=== PATIENT | male | born 1980 | race Caucasian/White ===

== ENCOUNTER → 2017-02-27 | Day surgery (SDC) | payer OTHER ==
[2017-01-30 14:34] VITALS: Ht 190.5 cm; Wt 109.1 kg
[2017-02-10 13:21] LABS: BASO % 0.4 %; BASO ABS # 0.03 K/uL (0-0.2); EOS % 3.5 %; EOS ABS # 0.24 K/uL (0-0.5); HEMATOCRIT 47.7 % (42-52); HEMOGLOBIN 16.9 g/dL (14.0-18.0); IG# 0.03 K/uL (0.00-0.02); LYMPH % 18.8 %; LYMPH ABS # 1.27 K/uL (1.2-3.4); MEAN CELL VOLUME 91.9 fL (80-100); MEAN CORPUSCULAR HEMOGLOBIN 32.6 pg (25-34); MEAN CORPUSCULAR HGB CONC 35.4 g/dl (32-36); MEAN PLATELET VOLUME 10.6 fL (7.4-10.4); MONO % 6.6 %; MONO ABS # 0.45 K/uL (0.11-0.59); NEUT % 70.3 %; NEUT ABS # 4.75 K/uL (1.4-6.5); PLATELET COUNT 168 K/uL (130-400); RED CELL DISTRIBUTION WIDTH CV 12.5 % (11.5-14.5); WHITE BLOOD COUNT 6.77 K/uL (4.8-10.8)
[2017-02-10 13:29] LABS: PTT PATIENT 32.5 SECONDS (21.0-31.0)
[2017-02-10 13:46] LABS: POTASSIUM 3.8 mmol/L (3.5-5.1)
[~2017-02-27] VITALS: Ht 190.5 cm; Wt 109.1 kg
[~2017-02-27] MED LIST: ATROPINE SULFATE 0.1 MG/ML 5ML SYR IV PRN; BACITRACIN/POLYMYXIN B OINT 90 APPLN/28.4 GM TUBE EXT ONE; CETI10TA10 PO; CHOL20009 PO; CLINDAMYCIN PHOS 150 MG/ML 2 ML VIAL IV SCH; DEXAMETHASONE SOD INJ 4 MG/ML VIAL ONE; EpINEphrine INJ 1MG/ML AMP 1 MG/ML AMP ONE; FENTANYL CITRATE INJ 50 MCG/1 ML 2 ML VIAL IV PRN; FENTANYL CITRATE INJ 50 MCG/1 ML 2 ML VIAL ONE; GLYCOPYRROLATE INJ 0.2 MG/ML VIAL ONE; HYDROCODONE/ACETAMIN 5/325MG TAB PO PRN; LABETALOL HCL IV 5 MG/ML 20ML IV PRN; LACTATED RINGER'S 1000ML 1,000 ML IV SCH; LEVO137C2 PO; LIDOCAINE 4% MPF SOAK 5 ML = 1 DOSE TOP ONE; LIDOCAINE HCL 2% 2 ML VIAL (20MG/ML) ONE; LIDOCAINE/EPINEPHRINE 1% INJ 50 ML VIAL ONE; LISI10TA PO; MIDAZOLAM HCL 1 MG/ML 2ML VIAL ONE; MONT1TAB3 PO; NEOSTIGMINE METHYLSULFATE 5 MG/5 ML SYR ONE; ONDANSETRON INJ 2 MG/ML 2 ML VIAL IV PRN; ONDANSETRON INJ 2 MG/ML 2 ML VIAL ONE; OXYMETAZOLINE HCL 0.05% NA SPR 15 ML BTL PRN; OXYMETAZOLINE HCL 0.05% NA SPR 15 ML BTL SCH; PROPOFOL IV EMULSION 10 MG/ML 20 ML VIAL IV ONE
--- NOTE | 2017-02-27 09:51 | History and Physical: Surg Cnt ---
History & Physical Date Feb 27, 2017. Chief Complaint CHRONIC SINUSITIS, LEFT SEPTAL DEVIATION, RIGHT ZACHARY BULLOSA, BILATERAL INFERIOR TURBINATE HYPERTROPHY History of Present Illness The patient is a 36 year old male with complaints of CHRONIC SINUSITIS, LEFT SEPTAL DEVIATION, RIGHT ZACHARY BULLOSA, BILATERAL INFERIOR TURBINATE HYPERTROPHY WITH SYMPTOMS DESPITE MAXIMAL MEDICAL THERAPY. Past Medical/Surgical History PMH: ABOVE, ALLERGIC RHINITIS, DYSLIPIDEMIA, NEPHROLITHIASIS, +JAYCE PSH: S/P WISDOM TEETH EXTRACTION Allergies Coded Allergies: Penicillins (Unverified Allergy, Mild, NUMBNESS, HIVES, 01/30/17) Home Medications Scheduled Cetirizine Hcl (Zyrtec), 10 MG PO QAM Cholecalciferol (Vitamin D), 2 TAB PO QAM Levothyroxine Sodium (Tirosint), 1 CAP PO QAM Lisinopril (Prinivil), 10 MG PO QAM Montelukast Sodium (Singulair), 10 MG PO QAM Physical Examination Skin: warm/dry, no rash Eyes: normal inspection, EOMI, sclerae normal ENT: + pertinent finding (LEFT SEPTAL DEVIATION, RIGHT MIDDLE TURBINATE HYPERTROPHY, BILATERAL INFERIOR TURBINATE HYPERTROPHY) Head: normocephalic, atraumatic Neck: supple, no adenopathy, trachea midline Respiratory/Chest: lungs clear, normal breath sounds, no respiratory distress Cardiovascular: regular rate, rhythm, no edema, no murmur Neurologic/Psych: no motor/sensory deficits, alert, normal reflexes, oriented x 3 Diagnosis CHRONIC SINUSITIS, LEFT SEPTAL DEVIATION, RIGHT ZACHARY BULLOSA, BILATERAL INFERIOR TURBINATE HYPERTROPHY Plan of Treatment IMAGE-GUIDED LEFT MAXILLARY ANTROSTOMY, RIGHT ENDOSCOPIC ZACHARY BULLOSA RESECTION, SEPTOPLASTY, BILATERAL INFERIOR TURBINATE REDUCTION
--- NOTE | 2017-02-27 10:58 | [facility] Operative Report ---
Operative Report Operative Date Feb 27, 2017. Pre-Operative Diagnosis Chronic sinusitis, left septal deviation, right zachary bullosa, bilateral inferior turbinate hypertrophy Post-Operative Diagnosis Same as preop Procedure(s) Performed Bilateral Endoscopic Sinus Surgery Including Left Maxillary Antrostomy, Septoplasty, Right Endoscopic Zachary Bullosa Resection, Bilateal Inferior Turbinate Reduction Surgeon Dr. Villatoro Public Address Announcer Surgeon(s) none Estimated Blood Loss 10ml Findings 1. SEVERE LEFT SEPTAL DEVIATION 2. RIGHT > LEFT INFERIOR TURBINATE HYPERTROPHY 3. LARGE RIGHT ZACHARY BULLOSA 4. HYPOPLASTIC LEFT MAXILLARY SINUS WITH THICK MUCUS FILLING THE ENTIRE SINUS Specimens none per surgeon I attest to the content of the Intraoperative Record and any orders documented therein. Any exceptions are noted below.
--- NOTE | 2017-02-27 11:00 | Discharge Instructions ---
Discharge Instructions Date of Service Feb 27, 2017. Admission Reason for Admission: Chronic Sinusitis, Nasal Septal Deviation, Hypertr Discharge Discharge Diagnosis / Problem: SAME Discharge Goals Goal(s): Therapeutic intervention Activity Recommendations Activity Limitations: as noted below 1. LIGHT ACTIVITY AND NO NOSE BLOWING FOR 2 WEEKS 2. NO DRIVING WHILE ON NORCO . Current Hospital Diet Patient's current hospital diet: Discharge Diet Recommended Diet: Regular Diet Procedures Procedures Performed: Bilateral Endoscopic Sinus Surgery Including Left Maxillary Antrostomy, Septoplasty, Right Endoscopic Nadine Bullosa Resection, Bilateal Inferior Turbinate Reduction Pending Studies Studies pending at discharge: no Medical Emergencies . Who to Call and When: Medical Emergencies: If at any time you feel your situation is an emergency, please call 911 immediately. . Non-Emergent Contact Non-Emergency issues call your: Surgeon . . "Provider Documentation" section prepared by Migue Villatoro. . VTE Core Measure Inpt VTE Proph given/why not?: SCD's
[2017-02-27 12:09] VITALS: BP 132/88; PULSE 72; TEMP 36.4; O2SAT 99
--- NOTE | 2017-02-27 12:15 | Anesthesia Progress Nt - [facility] ---
Anesthesia Post Op Note Date & Time Feb 27, 2017 at 12:15 Vital Signs Pain Intensity: 4 Vital Signs Past 12 Hours Date Time Temp Pulse Resp B/P (MAP) Pulse Ox O2 Delivery O2 Flow Rate FiO2 02/27/17 12:09 36.4 72 16 132/88 (103) 99 Room Air 02/27/17 11:48 75 16 122/87 (99) 96 Room Air 02/27/17 11:41 140/88 02/27/17 11:41 140/88 02/27/17 11:38 76 10 95 02/27/17 11:38 76 10 02/27/17 11:38 76 10 95 02/27/17 11:38 76 10 02/27/17 11:36 110/93 02/27/17 11:36 110/93 02/27/17 11:35 36.6 74 16 110/93 95 Room Air 02/27/17 11:33 75 12 95 02/27/17 11:33 75 12 02/27/17 11:33 75 12 02/27/17 11:33 75 12 95 02/27/17 11:31 134/89 02/27/17 11:31 134/89 02/27/17 11:28 74 13 97 02/27/17 11:28 74 13 97 02/27/17 11:28 74 13 02/27/17 11:28 74 13 02/27/17 11:26 130/85 02/27/17 11:26 130/85 02/27/17 11:23 81 10 02/27/17 11:23 81 10 94 02/27/17 11:23 81 10 02/27/17 11:23 81 10 94 02/27/17 11:21 131/90 02/27/17 11:21 131/90 02/27/17 11:18 81 16 97 02/27/17 11:18 81 16 97 02/27/17 11:18 83 16 02/27/17 11:18 83 16 02/27/17 11:16 134/85 02/27/17 11:16 134/85 02/27/17 11:13 81 15 96 02/27/17 11:13 81 15 96 02/27/17 11:13 81 15 02/27/17 11:13 81 15 02/27/17 11:11 135/85 02/27/17 11:11 135/85 02/27/17 11:08 92 16 96 02/27/17 11:08 92 16 96 02/27/17 11:08 95 16 02/27/17 11:08 95 16 02/27/17 11:06 155/95 02/27/17 11:06 155/95 02/27/17 11:04 36.5 96 16 146/95 98 Humidified Oxygen 8 Mask 02/27/17 11:04 146/95 02/27/17 11:04 146/95 02/27/17 08:21 36.3 86 16 135/93 (107) 98 Room Air Notes Mental Status: alert / awake / arousable, participated in evaluation Pt Amnestic to Procedure: Yes Nausea / Vomiting: adequately controlled Pain: adequately controlled Airway Patency, RR, SpO2: stable & adequate BP & HR: stable & adequate Hydration State: stable & adequate Anesthetic Complications: no major complications apparent
--- NOTE | 2017-02-27 12:53 | OPERATIVE REPORT ---
DATE OF OPERATION: 02/27/2017 PREOPERATIVE DIAGNOSES: 1. Chronic sinusitis. 2. Right katie bullosa. 3. Severe left septal deviation. 4. Right greater than left inferior turbinate hypertrophy. POSTOPERATIVE DIAGNOSES: 1. Chronic sinusitis. 2. Right katie bullosa. 3. Severe left septal deviation. 4. Right greater than left inferior turbinate hypertrophy. PROCEDURES: Medtronic fusion image guided bilateral endoscopic sinus surgery consisting of: 1. Left maxillary antrostomy. 2. Right endoscopic katie bullosa resection. 3. Septoplasty. 4. Bilateral inferior turbinate outfracture and turbinoplasty. SURGEON: Dr. Migue Villatoro. ANESTHESIA: General endotracheal. ESTIMATED BLOOD LOSS: 10 mL. FINDINGS: 1. Severe left septal deviation with near 100% obstruction of the left nasal cavity from the deviation. 2. Right greater than left inferior turbinate hypertrophy. 3. Large right katie bullosa. 4. Hypoplastic left maxillary sinus with associated inspissated mucus. SPECIMENS: None. COMPLICATIONS: None. INDICATIONS FOR THE PROCEDURE: The patient is a 36-year-old male with a history of chronic rhinosinusitis and nasal airway obstruction, which had been refractory to maximal medical therapy including antibiotics, steroids, and allergy treatment. He complains of left greater than right nasal airway obstruction and also has some left maxillary and ear pressure, which has not responded to medications. He presents for the above-mentioned procedure on an outpatient elective basis. DESCRIPTION OF PROCEDURE: After informed consent had been obtained from the patient, the patient was wheeled to the operating room and placed on the operating table in the supine position. Monitors were placed. After induction of general endotracheal anesthesia, the patient was prepped in the usual fashion for image guided sinus surgery. The [employer] fusion headset was placed over the forehead and was registered, calibrated, and verified and used for the left maxillary antrostomy portion of the case given the patient's anatomy of the hypoplastic left maxillary sinus. The patient's nasal cavity was inspected and the patient has severe left septal deviation with near 100% obstruction on that side. Septoplasty had to be performed prior to the left maxillary antrostomy. The nasal septum was injected with 1% lidocaine with 1:100,000 epinephrine. Lidocaine and epinephrine pledgets was then placed in the bilateral nasal cavities and pressure applied. After allowing adequate time for vasoconstriction and anesthesia, the pledgets were removed and a #15 scalpel was used to make a left para-[place] incision, through which the left-sided mucoperichondrial and mucoperiosteal flap was elevated. A #15 scalpel was then used to incise the quadrangular cartilage with care to preserve a 1.5-cm dorsal and caudal strut and the right-sided mucoperichondrial and mucoperiosteal flap was elevated through this cartilaginous incision. A Nikolay swivel knife was then used to remove the deviated portion of the quadrangular cartilage. Gunner forceps was used to remove septal bone more posteriorly, which was impinging on the airway on the left hand side anterosuperiorly and posteriorly. After this bone had been removed, the septum was found to be in midline. The septal cavity was suctioned. The left para-Nakul incision was closed with several simple interrupted 4-0 chromic sutures. A 4-0 plain gut suture on a Luis needle was then used to perform a quilting stitch of the mucoperichondrial and mucoperiosteal flaps bilaterally to help prevent septal hematoma. A freer elevator was then used to medialize the left middle turbinate. The left middle turbinate and lateral nasal wall were injected with 1% lidocaine with 1:100,000 epinephrine. The right side was then addressed in a similar fashion. Lidocaine and epinephrine pledgets were then placed into bilateral middle meati. The left-sided pledgets were removed. The patient was noted to have a hypoplastic left maxillary sinus with an uncinate process that was plastered against the inferior orbital rim. A curved maxillary suction was used to enter the left maxillary sinus, which was completely evacuated of a thick inspissated mucus, which did not look infected, but completely filled the left maxillary sinus. The left maxillary sinus ostium was then enlarged anteriorly and posteriorly using powered instrumentation and straight Daniel-Cut forceps. Merogel nasal dressing was then placed into the left middle meatus. The right side was then addressed. A sickle knife was used to incise the right middle turbinate longitudinally and the lateral half of the middle turbinate was removed using straight Daniel-Cut forceps and powered instrumentation. Merogel dressing was placed over the katie bullosa resection site. A Hooper elevator was then used to infracture and subsequently outfracture the inferior turbinates bilaterally. The inferior turbinates were injected with 1% lidocaine with 1:100,000 epinephrine. A 2.0-mm turbinate blade using powered instrumentation was then used to perform bilateral inferior turbinoplasties in the submucosal fashion. The sinonasal cavities were then suctioned. An orogastric tube was placed and the stomach was suctioned free of air and stomach contents. This marked the end of the case. The patient tolerated the procedure well. There were no apparent complications. The patient was extubated and transferred to recovery room in stable condition. I attest to the content of the Intraoperative Record and any orders documented therein. Any exception s are noted below.
== END | disposition home or self-care (01) ==
LOC: X.SURG 07:59
DX: J32.9 Chronic sinusitis, unspecified (principal); J34.2 Deviated nasal septum; J34.3 Hypertrophy of nasal turbinates; E78.5 Hyperlipidemia, unspecified; Z87.442 Personal history of urinary calculi; Z88.0 Allergy status to penicillin; I10 Essential (primary) hypertension; E03.9 Hypothyroidism, unspecified; M19.90 Unspecified osteoarthritis, unspecified site; E66.9 Obesity, unspecified; K21.9 Gastro-esophageal reflux disease without esophagitis; G56.00 Carpal tunnel syndrome, unspecified upper limb

== ENCOUNTER → 2017-03-15 | Outpatient (CLI) | payer OTHER ==
[~2017-03-15] MED LIST changes: -ATROPINE SULFATE 0.1 MG/ML 5ML SYR IV PRN; -BACITRACIN/POLYMYXIN B OINT 90 APPLN/28.4 GM TUBE EXT ONE; -CLINDAMYCIN PHOS 150 MG/ML 2 ML VIAL IV SCH; -DEXAMETHASONE SOD INJ 4 MG/ML VIAL ONE; -EpINEphrine INJ 1MG/ML AMP 1 MG/ML AMP ONE; -FENTANYL CITRATE INJ 50 MCG/1 ML 2 ML VIAL IV PRN; -FENTANYL CITRATE INJ 50 MCG/1 ML 2 ML VIAL ONE; -GLYCOPYRROLATE INJ 0.2 MG/ML VIAL ONE; -HYDROCODONE/ACETAMIN 5/325MG TAB PO PRN; -LABETALOL HCL IV 5 MG/ML 20ML IV PRN; -LACTATED RINGER'S 1000ML 1,000 ML IV SCH; -LIDOCAINE 4% MPF SOAK 5 ML = 1 DOSE TOP ONE; -LIDOCAINE HCL 2% 2 ML VIAL (20MG/ML) ONE; -LIDOCAINE/EPINEPHRINE 1% INJ 50 ML VIAL ONE; -MIDAZOLAM HCL 1 MG/ML 2ML VIAL ONE; -NEOSTIGMINE METHYLSULFATE 5 MG/5 ML SYR ONE; -ONDANSETRON INJ 2 MG/ML 2 ML VIAL IV PRN; -ONDANSETRON INJ 2 MG/ML 2 ML VIAL ONE; +OPTIRAY 320 IV PRN; -OXYMETAZOLINE HCL 0.05% NA SPR 15 ML BTL PRN; -OXYMETAZOLINE HCL 0.05% NA SPR 15 ML BTL SCH; -PROPOFOL IV EMULSION 10 MG/ML 20 ML VIAL IV ONE
--- NOTE | 2017-03-15 13:12 | DIAGNOSTIC IMAGING REPORT ---
ABD/PELVIS COMBO HISTORY: 36 years-old Male 31.0 Gross hematuria COMPARISON: CT abdomen and pelvis 10/24/2012 TECHNIQUE: Multiple axial CT images of the abdomen and pelvis were obtained both with and without the use of 93 mL Optiray 320 utilizing hematuria protocol with delayed postcontrast images. A dose lowering technique was used consistent with the principals of GREER. FINDINGS: Mild dependent bibasilar atelectasis. No pneumatosis or pneumoperitoneum identified. The imaged inferior cardiac chambers are unremarkable. The liver, gallbladder, spleen, pancreas and adrenal glands are within normal limits. 2 mm nonobstructing calculus is seen within the interpolar right kidney, image 171 series 3. No additional nephrolithiasis or ureteral calculi identified. The previously noted nonobstructing calculus of the interpolar left kidney seen on study dated 10/24/2012 is no longer identified. No obstructive uropathy. Urinary bladder and prostate are within normal limits. Postcontrast delayed images demonstrate no focal filling defects within the collecting systems or ureters. Aorta is normal in course and caliber. No bulky adenopathy. No bowel obstruction or focal bowel wall thickening. Normal appendix. The previously described 3.3 cm lobulated water attenuating abnormality adjacent to the sigmoid colon seen on comparison CT is no longer identified. Soft tissues are unremarkable. Subcentimeter sclerotic foci of the pelvis suggest benign bone island. Mild posterior spondylitic spurring with posterior disc bulging is seen at L5-S1. IMPRESSION: 1. No acute intra-abdominal or intrapelvic abnormality identified. 2. 2 mm nonobstructing calculus of the interpolar right kidney without ureteral calculi or obstructive uropathy. Previously noted nonobstructing calculus of the inferior pole left kidney is no longer present. 3. No bowel obstruction or focal bowel wall thickening. 4. Normal appendix. The above report was generated using voice recognition software. It may contain grammatical, syntax or spelling errors. Electronically signed by: Rio Willett M.D. 03/15/2017 1:10 PM Dictated Date/Time: 03/15/2017 1:00 PM
== END | disposition home or self-care (01) ==
LOC: C.CTS 12:09
PROVIDERS: ATTEND Urology
DX: R31.0 Gross hematuria (principal); N20.0 Calculus of kidney